=== PATIENT | male | born 1950 | race Caucasian/White ===

== ENCOUNTER 2023-09-19 15:42 | Emergency (ER) | payer OTHER, MEDICARE, SELFPAY ==
[2023-09-19] VITALS (11 sets, daily range): BP systolic 144–192; BP diastolic 80–123; PULSE 102–123; RESP 15–28; TEMP 36.7; O2SAT 95–98; BMI 38.5
--- NOTE | 2023-09-19 15:48 | ECG_ITS ---
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
--- NOTE | 2023-09-19 15:50 | XR_ITS ---
[address] [address] Patient Name: ALEX WALLS MRN: [id number] date: 1950 Sex: M Assigned Patient Location: ER Current Patient Location: Accession/Order Number: [id number] Exam Date: 09/19/2023 16:20 Report Date: 09/19/2023 16:52 At the request of: JESSICA JENKINS Procedure: XR hand RT min 3V EXAM: XR hand RT min 3V HISTORY: R/O foreign body, glass COMPARISON: None. TECHNIQUE: 3 views FINDINGS: IMPRESSION: No visualized radiodense foreign body. Moderate degenerative changes of the radioscaphoid and to a lesser degree radiolunate articulation. Age-related changes of the triscaphe, second metacarpophalangeal and IP joints. No fracture, dislocation, subluxation or osseous lesion. Atherosclerosis of the vascular structures. Electronically authenticated by: SHANNAN SARABIA Date: 09/19/2023 16:52
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
[2023-09-19 16:48] LABS: Hematocrit 44.5 % (42.0-54.0); Hemoglobin 15.6 g/dL (14.0-18.0); Mean Corpuscular HGB Conc 35.1 g/dL (29.9-35.2); Mean Corpuscular Hemoglobin 31.6 pg (25.9-34.0); Mean Corpuscular Volume 90.1 fL (80.0-94.0); Mean Platelet Volume 9.5 fL (9.5-13.5); Platelet Count 267 10^3/uL (150-450); Red Blood Count 4.94 10^6/uL (4.70-6.10); Red Cell Distribution Width 13.5 % (11.0-15.0); White Blood Count 11.4 10^3/uL (4.0-11.0)
[2023-09-19 16:57] LABS: Anion Gap 15.7; BUN Creatinine Ratio 15.4; Calcium 9.3 mg/dL (8.5-10.1); Carbon Dioxide 27.2 mmol/L (21.0-32.0); Chloride 100 mmol/L (98-107); Estimated GFR (African America >60 (>=60); Estimated GFR (Non-African Ame 58 (>=60); Glucose 187 mg/dL (74-106); Potassium 3.9 mmol/L (3.5-5.1); Sodium 139 mmol/L (136-145)
[2023-09-19 16:58] LABS: Ethanol <3 mg/dL
[2023-09-19 17:05] LABS: Troponin I High Sensitivity 20.7 pg/mL (4.0-76.1)
[2023-09-19 17:13] LABS: Band Neutrophils Absolute 0.2 10^3/uL (0.0-0.3); Eosinophils Absolute Manual 0.11 10^3/uL (0.00-0.70); Lymphocytes Absolute Manual 0.91 10^3/uL (1.20-3.80); Monocytes Absolute Manual 1.25 10^3/uL (0.30-0.80); Segmented Neut Absolute Manual 8.89 10^3/uL (1.4-6.5)
[2023-09-19 18:52] LABS: Amphetamine Screen Urine NEGATIVE (NEGATIVE); Barbiturates Screen Urine NEGATIVE (NEGATIVE); Benzodiazepines Screen Urine NEGATIVE (NEGATIVE); Buprenorphine Screen Urine NEGATIVE (NEGATIVE); Cannabinoid Screen Urine POSITIVE (NEGATIVE); Cocaine Screen Urine NEGATIVE (NEGATIVE); Methadone Screen Urine NEGATIVE (NEGATIVE); Methamphetamines Screen Urine NEGATIVE (NEGATIVE); Opiate Screen Urine NEGATIVE (NEGATIVE); Oxycodone Screen Urine NEGATIVE (NEGATIVE); Phencyclidine Screen Urine NEGATIVE (NEGATIVE); Tricyclic Antidepressant Urine NEGATIVE (NEGATIVE)
[2023-09-19] MEDS: BACITRACIN 0.9 GM PACKET 1 PACKET TOPICAL (19:21)
[2023-09-19] MEDS: IBUPROFEN 400 MG TABLET 800 MG PO (23:28)
[2023-09-20 00:09] VITALS: BP 132/91; PULSE 88; RESP 17; O2SAT 94
== END 2023-09-20 01:52 | disposition home or self-care (01) ==
PROVIDERS: Emergency Medicine; Emergency Provider Internal Medicine
DX: S30.0XXA Contusion of lower back and pelvis, initial encounter (principal); S60.511A Abrasion of right hand, initial encounter; V49.9XXA Car occupant (driver) (passenger) injured in unspecified traffic accident, initial encounter
CPT/HCPCS: 36415; 70450; 71045; 72125; 72128; 72131; 73130; 80048; 80307; 80320; 84484; 85027; 93005; 99285